=== PATIENT | female | born 1985 | race Two or more races ===

== ENCOUNTER 2022-01-16 04:57 | Emergency (ER) | payer MEDICAID ==
[~2022-01-16] VITALS: Ht 165.1 cm; Wt 72.7 kg
[2022-01-16 07:30] VITALS: BP 142/85
[2022-01-16] MEDS ORDERED: ALBU108A5 IN (08:33)
[2022-01-16] MEDS ORDERED: METH4PAK PO (08:33)
== END 2022-01-16 08:34 | disposition home or self-care (01) ==
LOC: ER 04:57
DX: J68.9 Unspecified respiratory condition due to chemicals, gases, fumes and vapors (principal)
CPT/HCPCS: 71045

== ENCOUNTER 2022-02-02 00:05 | Emergency (ER) | payer MEDICAID, OTHER ==
[~2022-02-02] VITALS: Ht 165.1 cm; Wt 75.0 kg
[~2022-02-02 00:05] MED LIST: ALBU108A5 IN; METH4PAK PO
[2022-02-02] MEDS ORDERED: PRED20TA2 PO (04:55)
[2022-02-02] MEDS ORDERED: predniSONE 20 MG TAB PO ONE (05:00)
[2022-02-02 06:21] VITALS: BP 129/88
== END 2022-02-02 06:26 | disposition home or self-care (01) ==
LOC: ER 00:05
DX: T59.91XA Toxic effect of unspecified gases, fumes and vapors, accidental (unintentional), initial encounter (principal); R06.02 Shortness of breath; R42 Dizziness and giddiness; Y92.89 Other specified places as the place of occurrence of the external cause
CPT/HCPCS: 71046; 99283; J7512